=== PATIENT | female | born 1965 | race Caucasian/White ===

== ENCOUNTER 2016-02-16 17:25 | Emergency (ER) | payer SELFPAY ==
[2016-02-16 19:51] VITALS: BP 194/109
[2016-02-16] MEDS ORDERED: Sulfamethox/Trimethoprim DS 800/160* TAB PO ONE (20:55)
[2016-02-16] MEDS ORDERED: HYDROcodone/ACETAMIN 5-325 MG* 1 TAB PO ONE (20:56)
--- NOTE | 2016-02-16 22:19 | UC ---
oumou Keith Timothy, scribed for Tessie Prather MD on 02/16/16 at 2040 . Complaint Female HPI - HPI Summary HPI Summary: Elizabeth Ortiz is a 50 yo female presenting to [facility] with constant 7/10 right flank pain, dysuria, and urinary urgency and frequency for the past 3 weeks. She denies any trauma, fever, N,V, cough or any other sxs. She is visiting her sister in-law, and will be leaving [place] on 02/17/2015 to return to [place]. she states she recently had a full work-up for her diverticulitis 6 months ago, including CT scan. Pt denies hx kidney stones. Her Hx includes diverticulitis, tobacco use. - History Of Current Complaint Chief Complaint: UCBackPain Stated Complaint: BACK PAIN WITH FREQUENT URINATION Hx Obtained From: Patient ?: No Onset/Duration: Gradual Onset, Lasting Weeks, Still Present, Worse Since - past 3 days Timing: Constant Severity Initially: Moderate Severity Currently: Moderate Pain Intensity: 7 Pain Scale Used: 0-10 Numeric Character: Dull Aggravating Factor(s): Urination Associated Signs And Symptoms: Positive: Back Pain. Negative: Fever, Vaginal Bleeding/Discharge, Vaginal Discharge, Nausea, Vomiting(# Of Episodes =) - Allergies/Home Medications Allergies/Adverse Reactions: Allergies Allergy/AdvReac Type Severity Reaction Status Date / Time Penicillins Allergy Severe Swelling Verified 02/16/16 19:51 Home Medications: Home Medications Fiber [Advanced Fiber Complex/AC] 1 cap PO 02/16/16 [History] Ibuprofen TAB* [Advil TAB*] 400 mg PO PRN 02/16/16 [History] [place] 4* 02/16/16 [History] PMH/Surg Hx/FS Hx/Imm Hx Previously Healthy: No GI/ History Of: Reports: Diverticulitis Denies: Gall Bladder Disease - Surgical History Surgical History: Yes Surgery Procedure, Year, and Place: PARTIAL UPPER AND LOWER INTESTINE REMOVED, COMPLETE HYSTERECTOMY - Family History Known Family History: Positive: Other - bladder cancer in father - Social History Alcohol Use: Occasionally Substance Use Type: None Smoking Status (MU): Current Every Day Smoker Type: Cigarettes Review of Systems Constitutional: Negative Skin: Negative Eyes: Negative ENT: Negative Respiratory: Negative Cardiovascular: Negative Gastrointestinal: Negative Genitourinary: Dysuria, Frequency, Urgency Motor: Negative Neurovascular: Negative Musculoskeletal: Other: - right flank pain Neurological: Negative Psychological: Negative All Other Systems Reviewed And Are Negative: Yes Physical Exam Triage Information Reviewed: Yes Appearance: Well-Appearing, Well-Nourished, Pain Distress - moderate, pain seems out of proportion to urinary findings. Vital Signs: Initial Vital Signs Temp 97.9 F 02/16/16 19:47 Pulse 98 02/16/16 19:47 Resp 16 02/16/16 19:47 BP 194/109 02/16/16 19:47 Pulse Ox 99 02/16/16 19:47 Vital Signs Reviewed: Yes Eyes: Positive: Conjunctiva Clear ENT: Positive: Hearing grossly normal. Negative: Muffled/hoarse voice Neck: Positive: Supple, Nontender Respiratory: Positive: Chest non-tender, Lungs clear, Normal breath sounds, No respiratory distress Cardiovascular: Positive: RRR, No Murmur, Pulses Normal, Brisk Capillary Refill Abdomen Description: Positive: No Organomegaly, Soft, CVA Tenderness (R). Negative: Nontender, Distended, McBurney's Point Tenderness, Peritoneal Signs, Pulsatile Mass, Splenomegaly Bowel Sounds: Positive: Present Musculoskeletal: Positive: Strength Intact, ROM Intact Neurological: Positive: Alert, Muscle Tone Normal Psychological Exam: Normal Skin Exam: Normal Skin: Negative: rashes Complaint Female Dx - Course Course Of Treatment: Elizabeth Ortiz is a 50 yo female presenting to [facility] with flank pain, urinary urgency, and frequency. After examination, and review of UA , she iker be discharged with UTI with instructions to be aware for rashes in case she has shingles, and to follow up with her primary care physician when she returns home. Pt also advised that she has microscopic hematuria, and that she may need to go to ED if her sxs continue or worsen, where advanced imaging would be possible. UA: color: pale, yellow. character: cloudy. odor: none. bilirubin: negative. urobilinogen: 2mg/dL. ketones: negative. ascorbic acid: negative. glucose: negative. protein: negative. blood: +. pH: 7. Nitrite: negative. Leukocytes: 25 WBC/microliter. specific gravity: 1.010 - Differential Dx/Diagnosis Differential Diagnosis/HQI/PQRI: Ureteral Stone, Urinary Tract Infection, Other - shingles, pneumonia, rib fracture or contusion, gall bladder disease. Provider Diagnoses: right flank pain, Tobacco abuse disorder, elevated blood pressure in poor control, UTI Discharge - Discharge Plan Condition: Stable Disposition: HOME Prescriptions: Sulfamethox/Trimethoprim DS* [Bactrim DS 800/160 TAB*] 1 tab PO BID #10 tab Patient Education Materials: Urinary Tract Infection in Women (ED), Flank Pain (ED) Referrals: No Primary Care Phys,NOPCP [Primary Care Provider] - Additional Instructions: Be aware of any developing rashes, as that will be an indication of possible shingles. Follow up with your primary care doctor when you return to [place]. Return to urgent care or the emergency department with any new or recurring symptoms. The documentation as recorded by the oumou nix Timothy accurately reflects the service I personally performed and the decisions made by , Tessie Prather MD.
== END 2016-02-16 21:25 | disposition home or self-care (01) ==
LOC: UCEAST 17:25
DX: M54.9 Dorsalgia, unspecified (principal); N39.0 Urinary tract infection, site not specified; R03.0 Elevated blood-pressure reading, without diagnosis of hypertension; Z87.442 Personal history of urinary calculi; Z88.0 Allergy status to penicillin; F17.210 Nicotine dependence, cigarettes, uncomplicated
CPT/HCPCS: 81002; 87086; 99202; A9270-GY; G0463

== ENCOUNTER 2016-02-17 22:08 | Emergency (ER) | payer SELFPAY ==
[2016-02-18] MEDS ORDERED: Ketorolac INJ* 30 MG/ML 1 ML VIAL IV PUSH ONE (00:02)
[2016-02-18] MEDS ORDERED: Ondansetron INJ* 2 MG/ML VIAL IV ONE (00:02)
[2016-02-18] MEDS ORDERED: NS 0.9% 1000 ML* 1,000 ML IV ONE (00:02)
--- NOTE | 2016-02-18 00:04 | ED ---
GI/ HPI - HPI Summary HPI Summary: 50 F w/ PMH of diverticulitis presents with right sided flank pain for 5 days. She states in the past 24 hours her pain has increased and she now has pain radiating to the front down to her groin. She admits to nausea but has not vomited. She denies any diarrhea or constipation or blood in stool or urine or fevers. She admits to urgency and dysuria that has been resolving after she was placed on the antibiotic yesterday at for a uti. Was told if pain increased to come here and pain has increased. She states she had a prophylactic hysterectomy and oophorectomy for ovarian cancer since her mother and grandmother had it. She does not have a history of kidney stones. She had part of her colon removed for diverticulitis and they took her appendix at the same time. She denies any cough, chest pain, or SOB. - History of Current Complaint Chief Complaint: EDFlankPain Time Seen by Provider: 02/17/16 23:50 Stated Complaint: RIGHT FLANK PAIN Pain Intensity: 9 - Allergy/Home Medications Allergies/Adverse Reactions: Allergies Allergy/AdvReac Type Severity Reaction Status Date / Time Penicillins Allergy Severe Swelling Verified 02/16/16 19:51 PMH/Surg Hx/FS Hx/Imm Hx Endocrine/Hematology History: Denies: Hx Anticoagulant Therapy Cardiovascular History: Reports: Hx Hypertension GI History: Reports: Hx Diverticulosis Denies: Hx Gall Bladder Disease - Surgical History Surgery Procedure, Year, and Place: PARTIAL UPPER AND LOWER INTESTINE REMOVED, COMPLETE HYSTERECTOMY Infectious Disease History: Yes Infectious Disease History: Denies: Traveled Outside the [place] in Last 30 Days - Family History Known Family History: Positive: Other - bladder cancer in father, ovarian CA mother and grandmother - Social History Alcohol Use: Occasionally Substance Use Type: Reports: None Smoking Status (MU): Current Every Day Smoker Type: Cigarettes Review of Systems Negative: Fever Negative: Chest Pain Negative: Shortness Of Breath Positive: Nausea, Other - right sided flank pain. Negative: Abdominal Pain, Vomiting, Diarrhea All Other Systems Reviewed And Are Negative: Yes Physical Exam Triage Information Reviewed: Yes Vital Signs On Initial Exam: Initial Vitals Temp Pulse Resp BP Pulse Ox 97.8 F 89 22 152/94 99 02/17/16 22:13 02/17/16 22:13 02/17/16 22:13 02/17/16 22:13 02/17/16 22:13 Vital Signs Reviewed: Yes Appearance: Positive: Well-Appearing Skin: Positive: Warm, Dry, Other - no rash present Head/Face: Positive: Normal Head/Face Inspection Eyes: Positive: Normal, Conjunctiva Clear ENT: Positive: Normal ENT inspection, Pharynx normal, TMs normal Respiratory/Lung Sounds: Positive: Clear to Auscultation, Breath Sounds Present Cardiovascular: Positive: Normal, RRR Abdomen Description: Positive: Nontender, Soft, CVA Tenderness (R), Other: - neg payne. Negative: CVA Tenderness (L) Bowel Sounds: Positive: Present Diagnostics - Vital Signs Vital Signs Temp Pulse Resp BP Pulse Ox 02/17/16 22:13 97.8 F 89 22 152/94 99 - Laboratory Result Diagrams: 02/18/16 00:00 02/18/16 00:00 Lab Statement: Any lab studies that have been ordered have been reviewed, and results considered in the medical decision making process. - CT ab CT Interpretation: No Acute Changes - no inflammatory precoss in abdomen or pelvis, no abdominal mass, adenopathy, no calculi CT Interpretation Completed By: Radiologist Re-Evaluation - Re-Evaluation First Eval Re-Evaluation Time: 00:38 Change: Improved Comment: nausea improved, still in pain after toradol will give morphine, abdomen nontender GIGU Course/Dx - Course Course Of Treatment: 50 F presents with right side flank pain for 5 days. Pain was intermittent and has become constant and now radiates down to groin. Was seen in UC yesterday and diagnosed with UTI and UTI sx of dysuria and frequency are resolving, on exam pos CVA tenderness on right side, abdominal exam benign, vaginal exam not performed as had total hysterctomy with oophorectomy, will get CT and labs, do not suspect diverticulitis as has had normal BM and abdominal exam nontender, do not suspect gallbladder as pain started with flank pain, has WBC but CRP is normal, all other labs normal, CT normal, explained results to patient, will send home with roger, patient agrees with plan - Diagnoses Differential Diagnoses - Female: Cholelithiasis, Diverticulitis, Urinary Tract Infection, Ureteral Calculi, Other - shingles Provider Diagnoses: Right flank pain Discharge - Discharge Plan Condition: Good Disposition: HOME Patient Education Materials: Flank Pain (ED) Referrals: No Primary Care Phys,NOPCP [Primary Care Provider] - Additional Instructions: Take zofran every 6 hours as needed for nausea Take Tylenol or ibuprofen for pain every 6 hours as needed Continue antibiotics for UTI as prescribed Establish care with primary care physician Return to ED if develop fever, blood in stool, rash, or any new or worsening symptoms
[2016-02-18 00:21] LABS: Hematocrit 40 % (35-47); Hemoglobin 13.2 g/dl (12.0-16.0); Mean Corpuscular HGB Conc 34 g/dl (31-36); Mean Corpuscular Hemoglobin 30 pg (27-31); Mean Corpuscular Volume 90 fL (80-97); Mean Platelet Volume 8 um3 (7.4-10.4); Red Blood Count 4.41 10^6/ul (4.0-5.4); Red Cell Distribution Width 14 % (10.5-15); White Blood Count 12.6 10^3/ul (3.5-10.8)
[2016-02-18 00:29] LABS: Albumin 4.1 g/dL (3.2-5.2); BUN/Creatinine Ratio 19.8 (8-20); Calcium 9.1 mg/dL (8.6-10.3); EGFR African American 89.1 (>60); EGFR Non-African American 69.3 (>60); Globulin 2.4 g/dL (2-4); Potassium 3.9 mmol/L (3.5-5.0); Total Bilirubin 0.4 mg/dL (0.2-1.0); Total Protein 6.5 g/dL (6.4-8.9)
[2016-02-18] MEDS ORDERED: Morphine INJ* 4 MG/ML 1 ML CARPUJECT IV ONE (00:43)
[2016-02-18 00:58] LABS: Urine Bacteria 1+ (Absent); Urine Bilirubin Negative (Negative); Urine Glucose Negative (Negative); Urine Nitrite Negative (Negative)
[2016-02-18] MEDS ORDERED: Ondansetron TAB* 4 MG PO ONE (01:20)
[2016-02-18 01:38] VITALS: BP 128/77
--- NOTE | 2016-02-18 07:31 | RAD ---
CLINICAL HISTORY: Right-sided flank pain. Relevant surgical history includes hysterectomy, appendectomy and "partial upper and lower intestine removed" COMPARISON: None TECHNIQUE: Noncontrast CT examination of the abdomen and pelvis from the lung bases through the initial tuberosities. FINDINGS: VISUALIZED LUNG BASES: The visualized lung bases are grossly clear. There is no pleural effusion. ABDOMEN AND PELVIS: Evaluation of the solid organs and vasculature is limited without intravenous contrast. The liver, spleen, pancreas and adrenal glands are grossly normal in appearance. The gallbladder is normal. The kidneys are normal in appearance without focal mass, calcification or signs of hydronephrosis. The small and large bowel are not distended. There is surgical material at the base of the cecum and the appendix is nonvisualized consistent with the patient's surgical history. There are rectosigmoid diverticula, some with inspissated contrast in the lumen, but none exhibit acute and focal inflammatory change. Just anterior to the distal descending colon (image 104 of [id number]) there is a 9 mm groundglass density nodule without significant surrounding inflammatory change of the mesenteric fat. There is no gross retroperitoneal or mesenteric lymphadenopathy. The uterus is surgically absent. The abdominal aorta and iliac arteries are normal in course and diameter. Degenerative changes include multilevel loss of intervertebral disc height involving the lower thoracic and lumbar spine.There are no sinister bone lesions. IMPRESSION: 1. In the right lower quadrant there is a 9 mm groundglass density nodule of uncertain clinical significance. Possible etiologies could include an unusual presentation of epiploic appendicitis or focal enterocolitis, although there is no significant surrounding inflammatory change in the peritoneal fat. 2. There is no CT evidence of acute inflammatory change or obstruction involving either the gastrointestinal or urinary tract. 3. Chronic, degenerative and postoperative findings as described in body of the report.
== END 2016-02-18 01:35 | disposition home or self-care (01) ==
LOC: ED 22:08
DX: R10.9 Unspecified abdominal pain (principal); R11.0 Nausea
CPT/HCPCS: 36415; 74176; 80053; 81003; 81015; 83690; 85025; 86141; 87086; 96361; 96374; 96375; 99284; A9270-GY; J1885; J2270; J2405

== ENCOUNTER 2023-08-13 20:02 | Observation (INO) ==
[2023-08-13 20:35] LABS: ABS Basophils 0.1 10^3/uL (0.0-0.1); ABS Eosinophils 0.1 10^3/uL (0.0-0.5); ABS Lymphocytes 4.7 10^3/uL (1.0-4.8); ABS Monocytes 0.4 10^3/uL (0.0-0.9); ABS Neutrophils 3.9 10^3/uL (1.5-7.6); ABS Nucleated RBC 0.01 10^3/ul; Eosinophil % 1.3 %; Hematocrit 37.7 % (35-45); Hemoglobin 12.8 g/dL (11.5-14.3); Lymphocyte % 51.8 %; Mean Corpuscular Hemoglobin 31.3 pg (27-33); Mean Platelet Volume 7.5 fL (7.5-11.2); Nucleated Red Blood Cells % 0.1 %/100WBC (0.0-0.8); Platelet Count 251 10^3/uL (150-450); White Blood Count 9.1 10^3/uL (3.8-11.8)
[2023-08-13 20:47] LABS: INR 0.92 (0.83-1.13)
[2023-08-13 21:37] LABS: Albumin 4.2 g/dL (3.2-5.2); Albumin/Globulin Ratio 2.1 (1-3); Calcium 9.1 mg/dL (8.6-10.3); Creatinine, Serum 1.06 mg/dL (0.51-0.95); Total Bilirubin 0.5 mg/dL (0.2-1.0); Total Protein 6.2 g/dL (6.4-8.9); eGFR CKD-EPI 60.5 (>60)
[2023-08-13] MEDS: Morphine 4 MG/ML VIAL (1 ml) IV ONE (21:43)
[2023-08-13 22:00] LABS: High Sensitivity Troponin 1 Hr 4 pg/mL (<15)
[2023-08-13 23:23] LABS: HDL Cholesterol 54.2 mg/dL
[2023-08-14] MEDS: Ondansetron 4 mg VIAL 2 MG/ML 2 ml VIAL IV PRN (07:06)
[2023-08-14] MEDS: Morphine 2 MG/ML SYRINGE IV PRN (07:07)
[2023-08-14] MEDS: Aspirin EC 81 mg TAB.EC (enteric coated) PO SCH (10:06)
[2023-08-15 06:26] LABS: ABS Basophils 0.1 10^3/uL (0.0-0.1); ABS Eosinophils 0.1 10^3/uL (0.0-0.5); ABS Lymphocytes 3.9 10^3/uL (1.0-4.8); ABS Monocytes 0.3 10^3/uL (0.0-0.9); ABS Neutrophils 2.6 10^3/uL (1.5-7.6); Eosinophil % 1.8 %; Hematocrit 38.5 % (35-45); Hemoglobin 12.9 g/dL (11.5-14.3); Mean Corpuscular Hemoglobin 31.1 pg (27-33); Mean Corpuscular Hgb Conc 33.5 g/dL (31-36); Mean Corpuscular Volume 92.9 fL (80-97); Mean Platelet Volume 7.5 fL (7.5-11.2); Platelet Count 208 10^3/uL (150-450); Red Blood Count 4.15 10^6/uL (3.63-4.92); Red Cell Distribution Width 14.2 % (12-17); White Blood Count 6.9 10^3/uL (3.8-11.8)
[2023-08-15 07:00] LABS: Calcium 8.5 mg/dL (8.6-10.3); Creatinine, Serum 0.85 mg/dL (0.51-0.95); Potassium 4.4 mmol/L (3.5-5.0); eGFR CKD-EPI 78.9 (>60)
[2023-08-15] MEDS ORDERED: Aminophylline 25 MG/ML VIAL ONE (08:39)
[2023-08-15] MEDS ORDERED: Regadenoson 0.4 MG/5 ML SYRINGE ONE (08:39)
[2023-08-15 13:42] VITALS: BP 129/68
== END 2023-08-15 17:47 | disposition home or self-care (01) ==
LOC: ED 20:02 → EDHOLD 20:02 → SUATTDRO 22:51 → MEDTELE 08-14 11:18
PROVIDERS: ADMIT Hospitalist; ATTEND Internal Medicine